=== PATIENT | male | born 1935 | race Caucasian/White ===

== ENCOUNTER 2018-01-06 08:58 | Day surgery (SDC) | payer MEDICARE, OTHER ==
[2017-12-31 10:37] LABS: BASOPHILS % (AUTO) 0.4 % (0-1); EOSINOPHILS # (AUTO) 0.2 X10'3 (0-0.9); EOSINOPHILS % (AUTO) 3.4 % (0-6); LYMPHOCYTES # (AUTO) 2.1 X10'3 (1.1-4.8); LYMPHOCYTES % (AUTO) 28.2 % (21-51); MEAN CORPUSCULAR HEMOGLOBIN 33.4 PG (27.0-31.0); MEAN CORPUSCULAR HGB CONC 34.7 % (33.0-36.5); MEAN CORPUSCULAR VOLUME 96.1 FL (78-98); MEAN PLATELET VOLUME 7.3 FL (7.4-10.4); MONOCYTES # (AUTO) 0.7 X10'3 (0-0.9); MONOCYTES % (AUTO) 8.9 % (2-12); NEUTROPHILS # (AUTO) 4.4 X10'3 (1.8-7.7); NEUTROPHILS % (AUTO) 59.1 % (42-75); PRE OP HEMATOCRIT 45.5 % (42.0-52.0); PRE OP HEMOGLOBIN 15.8 g/dL (14.0-17.9); PRE OP PLATELET COUNT 255 X10'3 (140-440); RED BLOOD COUNT 4.73 X10'6 (4.70-6.10); RED CELL DISTRIBUTION WIDTH 13.1 % (11.5-14.5)
[2017-12-31 10:44] LABS: CLARITY,URINE CLEAR (Clear); COLOR,URINE YELLOW (Yellow); GLUCOSE, URINE NEGATIVE (Neg); KETONES,URINE NEGATIVE (Neg); LEUKOCYTE ESTERASE ,URINE NEGATIVE (Neg); NITRITES, URINE NEGATIVE (Neg); OCCULT BLOOD,URINE NEGATIVE (Neg); PH,URINE 7.5 (4.8-8.0); PROTEIN,URINE NEGATIVE (Neg); UROBILINOGEN,URINE 0.2 E.U/dL (0.2-1.0)
[2017-12-31 10:52] LABS: UA COLLECTION TYPE CLN CATCH MIDSTREAM
[2017-12-31 10:52] LABS: ALBUMIN 3.8 G/DL (3.4-5.0); ALBUMIN/GLOBULIN RATIO 1.1 (1.1-1.5); ALKALINE PHOSPHATASE 61 IU/L (46-116); BLOOD UREA NITROGEN 19 MG/DL (7-18); BUN/CREATININE RATIO 15.7 (5.4-32.0); CALCIUM 9.4 MG/DL (8.5-10.1); CHLORIDE 105 MMOL/L (99-107); CREATININE 1.21 MG/DL (0.60-1.10); PRE OP ALT 26 U/L (30-65); PRE OP ANION GAP 5 (8-16); PRE OP AST 19 U/L (10-37); PRE OP BILIRUB, TOTAL 0.4 MG/DL (0.0-1.0); PRE OP GLUCOSE 86 MG/DL (70-104); PRE OP POTASSIUM 4.5 MMOL/L (3.4-5.1); PRE OP SODIUM 141 MMOL/L (135-145); TOTAL PROTEIN 7.4 G/DL (6.4-8.2); eGFR 57 ML/MIN
[~2018-01-06] VITALS: Ht 172.7 cm; Wt 70.9 kg
[2018-01-06] VITALS (9 sets, daily range): BP systolic 129–160; BP diastolic 68–89
[~2018-01-06 08:58] MED LIST: I CAPS PO; LISI-600 PO; MAGN400T29 PO; MULT-1172 PO; OMEG-42 PO; famotidine 20mg tablet PO ONE; ringers solution, lacted 1,000 ML IV SCH
[2018-01-06] MEDS ORDERED: BUPIVAcaine 0.5% inj/PF 30 ml vial ONE (12:16)
[2018-01-06] MEDS ORDERED: desflurane 240ml liquid inh. IH ONE (12:21)
[2018-01-06] MEDS ORDERED: fentaNYL/PF 50MCG/1 ML 2ML syringe ONE (12:27)
[2018-01-06] MEDS ORDERED: midazolam 2 mg/2 ml injection ONE (12:28)
[2018-01-06] MEDS ORDERED: LIDOcaine 1%/PF (10mg/ml) 5ml vial ONE (12:40)
[2018-01-06] MEDS ORDERED: ceFAZolin 1000mg inj ONE (12:45)
[2018-01-06] MEDS ORDERED: ringers solution, lacted 1,000 ML IV SCH (12:57)
[2018-01-06] MEDS ORDERED: ondansetron/PF 4mg/2ml inj IV PRN (13:00)
[2018-01-06] MEDS ORDERED: fentaNYL/PF 50MCG/1 ML 2ML syringe IV PRN ×2 (13:00)
[2018-01-06] MEDS ORDERED: meperidine/PF 50mg/ml syringe IV PRN (13:00)
[2018-01-06] MEDS ORDERED: hydrALAZINE 20mg/ml inj. IV PRN (13:00)
[2018-01-06] MEDS ORDERED: proCHLORperazine 10 MG/2 ml inj IV PRN (13:00)
[2018-01-06] MEDS ORDERED: HYDROmorphone inj. 0.5 MG/0.5 ML DISP.SYRIN IV PRN ×2 (13:00)
[2018-01-06] MEDS ORDERED: propofol inj 20 ML IV ONE (13:01)
== END 2018-01-06 14:15 | disposition home or self-care (01) ==
LOC: PAS 08:58
PROVIDERS: ATTEND Surgery
DX: K62.0 Anal polyp (principal); K62.89 Other specified diseases of anus and rectum; I10 Essential (primary) hypertension; M19.90 Unspecified osteoarthritis, unspecified site; Z87.891 Personal history of nicotine dependence; Z72.89 Other problems related to lifestyle; Z79.899 Other long term (current) drug therapy; Z98.890 Other specified postprocedural states
CPT/HCPCS: 36415; 45330; 46922; 80053; 81003; 85025; 93005; A6224; A6449; J0690; J2001; J2250; J2704; J3010; J3490; J7120; 88305; A7000